=== PATIENT | male | born 1985 | race Two or more races ===

== ENCOUNTER 2022-10-13 18:33 | Emergency (ER) | payer MEDICAID, OTHER ==
[~2022-10-13] VITALS: Ht 185.4 cm; Wt 91.0 kg
[~2022-10-13 18:33] MED LIST: NO MEDS TO REPORT
[2022-10-13] MEDS ORDERED: CARB-274 EACH EAR (19:22)
[2022-10-13 19:54] VITALS: BP 114/64
== END 2022-10-13 19:55 | disposition home or self-care (01) ==
LOC: ER 18:33
DX: H61.22 Impacted cerumen, left ear (principal)
CPT/HCPCS: 69209; 69210; 99282; 99284